=== PATIENT | female | born 1955 | race Two or more races ===

== ENCOUNTER 2020-08-11 11:08 | Outpatient (CLI) | payer OTHER | END 2020-08-11 11:36 | disposition home or self-care (01) | LOC: MRI 11:08 | PROVIDERS: ATTEND Orthopaedic Surgery Sports Medicine | DX: M23.231 Derangement of other medial meniscus due to old tear or injury, right knee (principal) | CPT/HCPCS: 73721 ==

== ENCOUNTER 2023-05-14 09:16 | Outpatient (CLI) | payer OTHER ==
[2023-05-14 10:59] LABS: PH,URINE 6.5 (5.0-8.0); URINE APPEARANCE Cloudy; URINE BILIRRUBIN Negative (NEGATIVE); URINE BLOOD Negative; URINE COLOR Yellow; URINE GLUCOSE Negative (NEGATIVE); URINE LEUKOCYTE Small; URINE NITRATE Positive; URINE PROTEIN Negative (NEGATIVE); URINE UROBILINOGEN 0.2 E.U./dl
[2023-05-14 11:02] LABS: URINE EPITHELIAL CELLS 14.5 uL (0.0-38.8); URINE WBC 176.3 uL (0.0-23.2)
[2023-05-14 11:12] LABS: HEMATOCRIT 43.1 % (36.0-45.00); HEMOGLOBIN 14.7 g/dL (12.0-15.00); MEAN CELL VOLUME 87.6 fL (80.00-100.00); MEAN CORPUSCULAR HEMOGLOBIN 29.9 pg (27.00-32.0); MEAN CORPUSCULAR HGB CONC 34.1 g/dl (32.0-36.0); PLATELET COUNT 235 K/uL (150-450); RED BLOOD COUNT 4.92 M/uL (4.00-6.00); RED CELL DISTRIBUTION WIDTH 13.8 % (11.5-14.5)
[2023-05-14 11:29] LABS: URINE BACTERIA > 9821.5 uL (0.0-1933)
[2023-05-14 11:50] LABS: INR 1.01; PARTIAL THROMBOPLASTIN TIME 27.9 SECONDS (22.0-34.0); PROTHROMBIN TIME 10.6 SECONDS (9.0-11.5)
[2023-05-14 11:57] LABS: BILIRUBIN TOTAL 1.06 mg/dL (0.3-1.2); CALCIUM 9.9 mg/dL (8.5-10.1); CREATININE SERUM 0.64 mg/dL (0.55-1.02); GFR 92.28; GLOBULINA 3.9 G/DL (2.4-3.5); POTASSIUM 5.16 mEq/L (3.5-5.1); TOTAL PROTEIN 7.9 gm/dL (6.4-8.2)
[2023-05-16] MEDS ORDERED: LIPITOR40 M1 (11:33)
[2023-05-16] MEDS ORDERED: ECOTRIN81 MG (11:34)
[2023-05-16] MEDS ORDERED: VITAMIN D310 MC4 (11:34)
[2023-05-16] MEDS ORDERED: LEVOTHYROXINE25 MCG (11:35)
[2023-05-16] MEDS ORDERED: METHYLPHENIDATE10 M4 PO (11:36)
== END 2023-05-14 09:19 | disposition home or self-care (01) ==
LOC: LAB 09:16
PROVIDERS: ATTEND Obstetrics & Gynecology Gynecology
DX: I10 Essential (primary) hypertension (principal)

== ENCOUNTER 2023-05-21 05:00 | Day surgery (SDC) | payer OTHER ==
[~2023-05-21] VITALS: Ht 157.5 cm; Wt 63.5 kg
[~2023-05-21 05:00] MED LIST: ECOTRIN81 MG; LEVOTHYROXINE25 MCG; LIPITOR40 M1; METHYLPHENIDATE10 M4 PO; VITAMIN D310 MC4
[2023-05-21] MEDS ORDERED: POVIDONE-IODINE 118 ML BOTT TOP ONE ×2 (12:15→14:00)
[2023-05-21] MEDS ORDERED: IBU800 MG PO (14:13)
[2023-05-21] MEDS ORDERED: ONDANSETRON HCL 2 MG/ML VIAL ONE (17:19)
== END 2023-05-21 18:50 | disposition home or self-care (01) ==
LOC: CIR.AMB 05:00
PROVIDERS: ATTEND Obstetrics & Gynecology Gynecology
DX: N85.01 Benign endometrial hyperplasia (principal)